=== PATIENT | female | born 1990 | race Caucasian/White ===

== ENCOUNTER 2025-04-27 12:59 | Outpatient (CLI) | payer OTHER ==
[~2025-04-27] VITALS: Ht 157.5 cm; Wt 83.1 kg
[2025-04-27 13:21] VITALS: BP 116/68
[2025-04-27] MEDS ORDERED: VERA40TA PO (13:55)
[2025-04-27] MEDS ORDERED: CITA20TA6 PO (13:55)
[2025-04-27] MEDS ORDERED: HOME MED LIST COMPLETE! XX SCH (13:55)
[2025-04-27] MEDS ORDERED: EFFE37.52 PO (13:55)
[2025-04-27] MEDS ORDERED: OMEP-173 PO (13:55)
[2025-04-27 14:28] VITALS: BP 119/71
[2025-04-27 14:35] LABS: APPEARANCE, URINE HAZY (CLEAR); BACTERIA, URINE AUTO NEGATIVE (NEGATIVE); BILIRUBIN, URINE AUTO NEGATIVE (NEGATIVE); BLOOD, URINE BLOOD NEGATIVE (NEGATIVE); GLUCOSE, URINE (UA) AUTO NEGATIVE (NEGATIVE); KETONE, URINE AUTO NEGATIVE (NEGATIVE); LEUKOCYTE ESTERASE, URINE AUTO 1+ (NEGATIVE); MUCUS, URINE SMALL (NEGATIVE); NITRITE, URINE AUTO NEGATIVE (NEGATIVE); PROTEIN, URINE AUTO NEGATIVE (NEGATIVE); RBC, URINE AUTO 1 /HPF (0-3); SPECIFIC GRAVITY URINE AUTO 1.014 (1.002-1.035); SQUAMOUS EPITHELIAL CELL UR AU 5 /HPF (0-6); UROBILINOGEN, URINE AUTO 0.2 mg/dL (0.0-2.0); WBC, URINE AUTO 2 /HPF (0-3)
== END 2025-04-27 15:16 | disposition home or self-care (01) ==
LOC: M LDO 12:59
PROVIDERS: ATTEND Advanced Practice Midwife
DX: O26.893 Other specified pregnancy related conditions, third trimester (principal); O99.343 Other mental disorders complicating pregnancy, third trimester; O99.333 Smoking (tobacco) complicating pregnancy, third trimester; R10.2 Pelvic and perineal pain; M54.50 Low back pain, unspecified; F32.9 Major depressive disorder, single episode, unspecified; F41.9 Anxiety disorder, unspecified; F17.210 Nicotine dependence, cigarettes, uncomplicated; Z3A.34 34 weeks gestation of pregnancy
CPT/HCPCS: 59025; 81001; 87086; G0463

== ENCOUNTER → 2025-05-06 | Outpatient (CLI) | payer OTHER ==
[~2025-05-06] MED LIST: ACET-683 PO; CITA20TA6 PO; EFFE37.52 PO; IBUP80TA PO; OMEP-173 PO; ONDA-282 PO; VERA40TA PO
[2025-05-06 19:12] LABS: ALT/SGPT 11 U/L (7.0-40); AST/SGOT 14 U/L (<34); CALCIUM LEVEL 8.2 MG/DL (8.5-10.1); CARBON DIOXIDE LEVEL 24 MMOL/L (20-31); CHLORIDE LEVEL 105 MMOL/L (98-107); CREATININE FOR GFR 0.62 MG/DL (0.55-1.30); GLOMERULAR FILTRATION RATE > 90.0 (>60); POTASSIUM SERUM 3.1 MMOL/L (3.5-5.1); SODIUM LEVEL 138 MMOL/L (136-145)
[2025-05-15 16:52] LABS: CHENODEOXYCHOLIC ACID 2.6 umol/L (< OR = 3.1); CHOLACID 0.5 umol/L (< OR = 1.8); DEOXYCHOLIC ACID 2.9 umol/L (< OR = 2.4)
== END ==
LOC: M PLALAB 14:26
PROVIDERS: ATTEND Obstetrics & Gynecology
DX: O99.719 Diseases of the skin and subcutaneous tissue complicating pregnancy, unspecified trimester (principal); L29.9 Pruritus, unspecified; Z36.85 Encounter for antenatal screening for Streptococcus B; Z3A.00 Weeks of gestation of pregnancy not specified

== ENCOUNTER 2025-05-12 07:28 | Inpatient (IN) | payer OTHER ==
[~2025-05-12] VITALS: Ht 157.5 cm; Wt 85.4 kg
[2025-05-12] VITALS (26 sets, daily range): BP systolic 106–148; BP diastolic 55–83; O2SAT 99
[~2025-05-12 07:28] MED LIST changes: -ACET-683 PO; -IBUP80TA PO; -ONDA-282 PO
[2025-05-12] MEDS ORDERED: ONDA-282 PO (07:57)
[2025-05-12] MEDS ORDERED: HOME MED LIST COMPLETE! XX SCH (08:00)
[2025-05-12] MEDS ORDERED: LIDOCAINE 1% MDV 20 ML VIAL INFIL PRN (10:30)
[2025-05-12] MEDS ORDERED: TRANEXAMIC ACID INJection 1,000 MG in NS 100 ML IV PRN (10:30)
[2025-05-12] MEDS ORDERED: METHYLERGONOVINE MALEATE 0.2 MG/ML 1 ML VIAL IM PRN (10:30)
[2025-05-12] MEDS: OXYTOCIN DRIP 30 UNITS in IV 1 EA IV SCH ×2 (11:10→19:20)
[2025-05-12] MEDS: LR 1,000 ML IV SCH (11:10)
[2025-05-12 11:24] LABS: PLATELET COUNT, AUTOMATED 218 10^3/uL (150-450)
[2025-05-12] MEDS: PENICILLIN G POTASSIUM 5 MU IV 5 MU in DEXTROSE 5% (D5W) MINI-BAG PLU 100 ML IV STA (12:33)
[2025-05-12 12:44] LABS: HIV 1&2 SCREEN NEGATIVE (NEGATIVE)
[2025-05-12 12:51] LABS: HEPATITIS C VIRUS ABY INDEX 0.04 INDEX (<0.8)
[2025-05-12] MEDS: PEN G POT 3,000,000 UNIT/50 ML 3,000,000 UNIT in IV 1 EA IV SCH (16:32)
[2025-05-12] MEDS ORDERED: FENTANYL 2 MCG/ML ROPIVACAINE 0.2% IN 0.9% NACL 100 ML IVBAG As Ordered ONE (18:46)
[2025-05-12] MEDS ORDERED: METHYLERGONOVINE MALEATE 0.2 MG TAB PO PRN (19:20)
[2025-05-12] MEDS ORDERED: CALCIUM CARBONATE 500 MG CHEW U/D PO PRN (19:20)
[2025-05-12] MEDS ORDERED: MOM 30 ML SUSPENSION UDC PO PRN (19:20)
[2025-05-12] MEDS ORDERED: ACETAMINOPHEN 325 MG TAB PO PRN (19:20)
[2025-05-12] MEDS ORDERED: IBUPROFEN 600 MG TAB PO PRN (19:20)
[2025-05-12] MEDS: ACETAMINOPHEN 500 MG TAB PO PRN (20:39)
[2025-05-12] MEDS: IBUPROFEN 800 MG TAB PO PRN (20:39)
[2025-05-13 06:00] VITALS: BP 118/70; O2SAT 98
[2025-05-13] MEDS: PRENATAL VITAMINS CHEWABLE TABLET PO SCH (08:11)
[2025-05-13] MEDS: ANUSOL HC CREAM 30 GM TOP PRN (08:12)
[2025-05-13] MEDS: OMEPRAZOLE 20MG CAP PO SCH (09:55)
[2025-05-13] MEDS: VENLAFAXINE **XR** 37.5 MG CAPSULE PO SCH (09:55)
[2025-05-13] MEDS: VERAPAMIL 40 MG TAB PO SCH (09:56)
[2025-05-13] MEDS: DOCUSATE SODIUM 100 MG CAPSULE PO PRN (12:00)
[2025-05-13 18:00] VITALS: BP 130/77; O2SAT 99
[2025-05-13] MEDS: RHOGAM 300MCG (1500IU) INJ IM SCH (20:45)
[2025-05-13] MEDS: MEASLES,MUMPS,RUBELLA VACCINE INJ (MMR-II) SC.IMMUN ONE (20:45)
[2025-05-14 06:00] VITALS: BP 102/50; O2SAT 98
[2025-05-14] MEDS: DIBUCAINE 1% OINTMENT 30 GM TOP PRN (08:07)
[2025-05-14] MEDS ORDERED: ACET-683 PO (08:41)
[2025-05-14] MEDS ORDERED: IBUP80TA PO (08:41)
== END 2025-05-14 12:53 | disposition home or self-care (01) | DRG 807 ==
LOC: M LDI 07:28 → M OBS 21:30
PROVIDERS: ADMIT Obstetrics & Gynecology; ATTEND Obstetrics & Gynecology
PROC: 10E0XZZ Delivery of Products of Conception, External Approach (ICD-10-PCS; principal; 2025-05-12)
PROC: 3E033VJ Introduction of Other Hormone into Peripheral Vein, Percutaneous Approach (ICD-10-PCS; 2025-05-12)
DX: O26.643 Intrahepatic cholestasis of pregnancy, third trimester (principal); Z37.0 Single live birth; O99.334 Smoking (tobacco) complicating childbirth; F17.210 Nicotine dependence, cigarettes, uncomplicated; Z88.8 Allergy status to other drugs, medicaments and biological substances; Z79.899 Other long term (current) drug therapy; Z3A.37 37 weeks gestation of pregnancy; O69.81X0 Labor and delivery complicated by cord around neck, without compression, not applicable or unspecified